=== PATIENT | female | born 1980 | race American Indian/Alaskan Native ===

== ENCOUNTER 2016-03-29 11:42 | Emergency (ER) | payer OTHER ==
[2016-03-29 13:00] LABS: Basophils % (Auto) 0.6 % (0.0-1.8); Eosinophils % (Auto) 3.1 % (0.0-4.3); Hematocrit 37.6 % (30.3-42.9); Hemoglobin 12.8 gm/dl (10.1-14.3); Mean Corpuscular HGB Conc 34 % (30-34); Mean Corpuscular Hemoglobin 30 pg (28-32); Mean Corpuscular Volume 89 fl (79-97); Platelet Count 269 K/mm3 (140-440); Red Blood Count 4.22 M/mm3 (3.65-5.03); Red Cell Distribution Width 12.9 % (13.2-15.2); White Blood Count 7.3 K/mm3 (4.5-11.0)
[2016-03-29 13:11] LABS: Anion Gap 14 mmol/L; BUN/Creatinine Ratio 14.28; Blood Urea Nitrogen 10 mg/dL (7-17); Calcium 9.1 mg/dL (8.4-10.2); Carbon Dioxide 27 mmol/L (22-30); Chloride 100.3 mmol/L (98-107); Glucose 141 mg/dL (65-100); Potassium 3.7 mmol/L (3.6-5.0); Sodium 138 mmol/L (137-145)
--- NOTE | 2016-03-29 16:55 | Emergency Department Report ---
HPI - General Chief Complaint: Chest Pain Time Seen by Provider: 03/29/16 16:14 - HPI HPI: The patient is a 35-year-old female who presents for evaluation of cough and chest pain. The patient reports cough and chest pain since this a.m., greater than 8 hours prior to my evaluation, chest pain tightness and aching in quality , mild in severity, exacerbated with coughing, and relieved at rest. She states her cough has been nonproductive. She denies fever, current shortness of breath, syncope, hemoptysis, palpitations, orthopnea, unilateral leg swelling , conscious septal use, history of DVT or PE, history of cancer. ED Past Medical Hx - Past Medical History Hx Hypertension: Yes Hx Asthma: Yes - Surgical History Hx Cholecystectomy: Yes Additional Surgical History: breast reduction, L. foot - Social History Smoking Status: Never Smoker Substance Use Type: None - Medications Home Medications: Home Medications Medication Instructions Recorded Confirmed Last Taken Type Hydrochlorothiazide [HCTZ] 25 mg PO ONCE #30 tablet 01/16/16 03/29/16 Unknown Rx ALBUTEROL Inhaler [ProAir HFA 2 puff IH QID PRN #1 inhalation 03/29/16 Unknown Rx Inhaler] ALBUTEROL Inhaler [Proair] 2 puff IH QID PRN 03/29/16 03/29/16 Unknown History Azithromycin [Zithromax Z-MARY] 250 mg PO QDAY #6 tablet 03/29/16 Unknown Rx Benzonatate [Tessalon Perles] 100 mg PO Q8HR #14 capsule 03/29/16 Unknown Rx Phenylephrine/Dm/Acetaminop/GG 20 ml PO Q4HR PRN #180 liquid 03/29/16 Unknown Rx [Mucinex Sfza-Mdc-Wropmkdhfn Lq] ED Review of Systems ROS: Stated complaint: CHEST PAIN/HIGH BP Other details as noted in HPI Constitutional: denies: fever ENT: denies: throat or neck pain Respiratory: reports cough denies: shortness of breath Cardiovascular: reports chest pain Endocrine: denies unexplained weight loss or gain Gastrointestinal: denies: abdominal pain, nausea Genitourinary: denies: dysuria Musculoskeletal: denies: leg swelling Skin: denies: rash Neurological: denies: headache Hematological/Lymphatic: denies: easy bleeding or easy bruising Psych: denies sadness or hopelessness Physical Exam - Physical Exam Vital Signs: Vital Signs 03/29/16 03/29/16 12:14 14:07 Temperature 98.1 F 97.9 F Pulse Rate 64 79 Respiratory 18 16 Rate Blood Pressure 182/111 Blood Pressure 131/87 [Left] O2 Sat by Pulse 98 99 Oximetry Physical Exam: General: well-nourished, well-developed, no acute distress, patient morbidly obese Head: Normocephalic, atraumatic Eyes: normal sclera ENT: Mucous membranes are pink and moist Neck: trachea midline, neck supple, No neck stiffness, no cervical adenopathy Respiratory: Breath sounds equal bilaterally, no wheezing, rales, or rhonchi Cardio: S1 and S2 present, no murmurs, rubs, gallops, capillary refill is brisk Abdomen: Normoactive bowel sounds, soft abdomen, no rigidity, no guarding or rebound tenderness Chest WALL/Back: tenderness to palpation of the left anterior chest wall present , no CVA tenderness with percussion Musc: No pitting edema Skin: No rash Neuro: no facial drooping, normal speech Psych: Normal affect ED Course Vital Signs 03/29/16 03/29/16 12:14 14:07 Temperature 98.1 F 97.9 F Pulse Rate 64 79 Respiratory 18 16 Rate Blood Pressure 182/111 Blood Pressure 131/87 [Left] O2 Sat by Pulse 98 99 Oximetry ED Medical Decision Making - Lab Data Result diagrams: 03/29/16 12:42 03/29/16 12:42 - Medical Decision Making The patient was seen and examined by myself. The patient is placed on a gum machine filler and continuous pulse ox. On initial evaluation, the patient was found to be in no distress. Evaluation orders were placed. EKG was negative for findings consistent with acute cardiac infarct. The patient declines medicine for her cough and pain. She requested prescriptions for outpatient treatment of her symptoms. Lab results were not concerning. Chest x-ray is negative for pulmonary vessel congestion, pleural effusion, focal consolidation, or other acute cardio pulmonary disease process. The patient was reevaluated and reported that their symptoms were improved. On reexamination the patient is found to have normal respiratory rate and O2 sat on pulse oximetry, with no costal retractions or diminishment of breath sounds on auscultation. The patient is stable for discharge with outpatient follow-up. The patient is given follow-up and return instructions. She is given prescriptions for a Z-Mary, albuterol inhaler, and Mucinex. The patient expressed understanding and agreed with the plan. The patient is discharged in stable condition. Critical care attestation.: If time is entered above; I have spent that time in minutes in the direct care of this critically ill patient, excluding procedure time. ED Disposition Clinical Impression: Acute chest pain, Asymptomatic hypertensive urgency, Bronchitis Disposition: DISCHARGED TO HOME OR SELFCARE Is pt being admited?: No Does the pt Need Aspirin: No Condition: Stable Instructions: Chest Pain (ED), Acute Bronchitis (ED), Chronic Hypertension (ED) Prescriptions: ALBUTEROL Inhaler [ProAir HFA Inhaler] 2 puff IH QID PRN #1 inhalation PRN Reason: Shortness Of Breath Azithromycin [Zithromax Z-MARY] 250 mg PO QDAY #6 tablet Benzonatate [Tessalon Perles] 100 mg PO Q8HR #14 capsule Phenylephrine/Dm/Acetaminop/GG [Mucinex Pbqk-Avb-Adnvvtuswd Lq] 20 ml PO Q4HR PRN #180 liquid PRN Reason: cough and sore throat Referrals: PRIMARY CARE, [Primary Care Provider] - 3-5 Days Forms: Work/School Release Form(ED) Time of Disposition: 16:32
[2016-03-29 17:20] VITALS: BP 129/82
--- NOTE | 2016-03-30 08:22 | XRay Report ---
AP CHEST: AP view of the chest demonstrates a normal mediastinal and cardiac contour with clear lungs and normal bony and soft tissue structures. IMPRESSION: Normal AP chest.
== END 2016-03-29 17:21 | disposition home or self-care (01) ==
LOC: ED 11:42
DX: R07.9 Chest pain, unspecified (principal); J40 Bronchitis, not specified as acute or chronic; I16.0 Hypertensive urgency; J45.909 Unspecified asthma, uncomplicated
CPT/HCPCS: 36415; 71010; 80048; 84484; 85025; 93005; 93010

== ENCOUNTER 2016-07-15 13:58 | Emergency (ER) | payer MEDICAID, OTHER ==
[2016-07-15 14:22] LABS: Hematocrit 38.7 % (30.3-42.9); Hemoglobin 13.2 gm/dl (10.1-14.3); Mean Corpuscular HGB Conc 34 % (30-34); Mean Corpuscular Hemoglobin 31 pg (28-32); Mean Corpuscular Volume 91 fl (79-97); Platelet Count 292 K/mm3 (140-440); Red Blood Count 4.27 M/mm3 (3.65-5.03); Red Cell Distribution Width 13.4 % (13.2-15.2); White Blood Count 7.8 K/mm3 (4.5-11.0)
[2016-07-15 14:43] LABS: Anion Gap 17 mmol/L; BUN/Creatinine Ratio 12.85; Blood Urea Nitrogen 9 mg/dL (7-17); Calcium 8.9 mg/dL (8.4-10.2); Carbon Dioxide 23 mmol/L (22-30); Chloride 97.5 mmol/L (98-107); Potassium 3.6 mmol/L (3.6-5.0); Sodium 134 mmol/L (137-145)
[2016-07-15 14:50] LABS: Bilirubin,Urine NEG (Negative); Blood,Urine LG (Negative); Ketones,Urine NEG (Negative); Leukocyte Esterase,Urine NEG (Negative); Nitrite,Urine NEG (Negative); RBC,Urine > 182.0 /HPF (0.0-6.0)
[2016-07-15 16:19] LABS: Glucose 98 mg/dL (65-100)
--- NOTE | 2016-07-15 16:58 | Emergency Department Report ---
ED HPI - General Chief complaint: Vaginal Bleeding Stated complaint: 8WKS W/BLEEDING Time Seen by Provider: 07/15/16 16:25 Source: patient Mode of arrival: Ambulatory Limitations: No Limitations - History of Present Illness Initial comments: 36-year-old female with a past medical history of asthma, hypertension, and previous cholecystectomy presents to the hospital complaints of miscarriage and vaginal bleeding. 4 days ago patient was told that her baby did not have a heartbeat. She estimates that is however, by LMP she is 10 weeks and 0 days. It was arranged for her to have a D&C the next day however, her insurance did not approve the procedure. Patient developed vaginal bleeding today and reports for heavy pads have been used since onset. She denies she reported a pelvic pain of 8/10 in intensity however, denies any pain currently. Mild lightheadedness reported without syncope. This is her third she has 2 living children with no previous history of miscarriages or abortions. [employer] [employer]: [facility] - Related Data Home Medications Medication Instructions Recorded Confirmed Last Taken ALBUTEROL Inhaler [Proair] 2 puff IH QID PRN 03/29/16 03/29/16 Unknown Previous Rx's Medication Instructions Recorded Last Taken Type Hydrochlorothiazide [HCTZ] 25 mg PO ONCE #30 tablet 01/16/16 Unknown Rx ALBUTEROL Inhaler [ProAir HFA 2 puff IH QID PRN #1 inhalation 03/29/16 Unknown Rx Inhaler] Azithromycin [Zithromax Z-MARY] 250 mg PO QDAY #6 tablet 03/29/16 Unknown Rx Benzonatate [Tessalon Perles] 100 mg PO Q8HR #14 capsule 03/29/16 Unknown Rx Phenylephrine/Dm/Acetaminop/GG 20 ml PO Q4HR PRN #180 liquid 03/29/16 Unknown Rx [Mucinex Hmew-Zth-Aylwxamtie Lq] HYDROcodone/APAP 5-325 [Morrill 1 each PO Q6HR PRN #15 tablet 07/15/16 Unknown Rx 5/325] Allergies Allergy/AdvReac Type Severity Reaction Status Date / Time No Known Allergies Allergy Verified 04/19/15 19:19 ED Review of Systems ROS: Stated complaint: 8WKS W/BLEEDING Other details as noted in HPI Comment: All other systems reviewed and negative Other: Constitutional: No fevers chills or weight loss Eyes: No eye pain visual changes or discharge ENT: No ear pain or throat pain Neck: Denies pain Respiratory: Denies cough wheezing shortness of breath Cardiovascular: Denies chest pain, palpitations, syncope GI: Denies abdominal pain, nausea, vomiting, diarrhea : Denies dysuria Musculoskeletal: Denies back pain Skin: Denies rash, lesions, erythema Neurologic: Denies headache, numbness, weakness Psychiatric: Denies suicidal ideation, hallucinations ED Past Medical Hx - Past Medical History Hx Hypertension: Yes Hx Asthma: Yes - Surgical History Hx Cholecystectomy: Yes Additional Surgical History: breast reduction, L. foot - Social History Smoking Status: Never Smoker Substance Use Type: None - Medications Home Medications: Home Medications Medication Instructions Recorded Confirmed Last Taken Type Hydrochlorothiazide [HCTZ] 25 mg PO ONCE #30 tablet 01/16/16 03/29/16 Unknown Rx ALBUTEROL Inhaler [ProAir HFA 2 puff IH QID PRN #1 inhalation 03/29/16 Unknown Rx Inhaler] ALBUTEROL Inhaler [Proair] 2 puff IH QID PRN 03/29/16 03/29/16 Unknown History Azithromycin [Zithromax Z-MARY] 250 mg PO QDAY #6 tablet 03/29/16 Unknown Rx Benzonatate [Tessalon Perles] 100 mg PO Q8HR #14 capsule 03/29/16 Unknown Rx Phenylephrine/Dm/Acetaminop/GG 20 ml PO Q4HR PRN #180 liquid 03/29/16 Unknown Rx [Mucinex Zrzl-Cic-Ktqoparzgx Lq] HYDROcodone/APAP 5-325 [[place]rill 1 each PO Q6HR PRN #15 tablet 07/15/16 Unknown Rx 5/325] ED Physical Exam - General Limitations: No Limitations - Other Other exam information: General: No limitations, patient is alert in no acute distress Head exam: Atraumatic, normocephalic Eyes exam: Normal appearance ENT: Moist mucous membrane, normal oropharynx Neck exam: Normal inspection, full range of motion Respiratory exam: Clear to auscultation bilateral, no wheezes, rales, crackles Cardiovascular: Normal rate and rhythm, normal heart sounds Abdomen: Soft, nondistended, and nontender, with normal bowel sounds, no rebound, or guarding Extremity: Full range of motion normal inspection no deformity Back: Normal Inspection, full range of motion, no tenderness Neurologic: Alert, oriented x3, cranial nerves intact, no motor or sensory deficit Psychiatric: normal affect, normal mood Skin: Warm, dry, intact ED Course Vital Signs 07/15/16 07/15/16 14:01 16:51 Temperature 98 F Pulse Rate 72 62 Respiratory 18 18 Rate Blood Pressure 131/97 Blood Pressure 139/80 [Right] O2 Sat by Pulse 100 98 Oximetry - Reevaluation(s) Reevaluation #1: 07/15/16 18:24 Patient stable with no significant pain in the ED - Consultations Consultation #1: 07/15/16 18:[address] Mcgee with [facility] [facility] [employer]. Recommend follow-up on Sunday ED Medical Decision Making - Lab Data Result diagrams: 07/15/16 14:09 07/15/16 14:09 Lab Results 07/15/16 07/15/16 07/15/16 Range/Units 14:09 14:09 14:09 WBC 7.8 (4.5-11.0) K/mm3 RBC 4.27 (3.65-5.03) M/mm3 Hgb 13.2 (10.1-14.3) gm/dl Hct 38.7 (30.3-42.9) % MCV 91 (79-97) fl MCH 31 (28-32) pg MCHC 34 (30-34) % RDW 13.4 (13.2-15.2) % Plt Count 292 (140-440) K/mm3 Sodium 134 L (137-145) mmol/L Potassium 3.6 (3.6-5.0) mmol/L Chloride 97.5 L (98-107) mmol/L Carbon Dioxide 23 (22-30) mmol/L Anion Gap 17 mmol/L BUN 9 (7-17) mg/dL Creatinine 0.7 (0.7-1.2) mg/dL Estimated GFR > 60 ml/min BUN/Creatinine Ratio 12.85 % Glucose 98 (65-100) mg/dL Calcium 8.9 (8.4-10.2) mg/dL HCG, Quant 338.3 H (0-4) mIU/mL Urine Color (Yellow) Urine Turbidity (Clear) Urine pH (5.0-7.0) Ur Specific [place] (1.003-1.030) Urine Protein (Negative) mg/dL Urine Glucose (UA) (Negative) mg/dL Urine Ketones (Negative) mg/dL Urine Blood (Negative) Urine Nitrite (Negative) Urine Bilirubin (Negative) Urine Urobilinogen (<2.0) mg/dL Ur Leukocyte Esterase (Negative) Urine WBC (Auto) (0.0-6.0) /HPF Urine RBC (Auto) (0.0-6.0) /HPF U Epithel Cells (Auto) (0-13.0) /HPF Blood Type 07/15/16 07/15/16 Range/Units 14:28 14:50 WBC (4.5-11.0) K/mm3 RBC (3.65-5.03) M/mm3 Hgb (10.1-14.3) gm/dl Hct (30.3-42.9) % MCV (79-97) fl MCH (28-32) pg MCHC (30-34) % RDW (13.2-15.2) % Plt Count (140-440) K/mm3 Sodium (137-145) mmol/L Potassium (3.6-5.0) mmol/L Chloride (98-107) mmol/L Carbon Dioxide (22-30) mmol/L Anion Gap mmol/L BUN (7-17) mg/dL Creatinine (0.7-1.2) mg/dL Estimated GFR ml/min BUN/Creatinine Ratio % Glucose (65-100) mg/dL Calcium (8.4-10.2) mg/dL HCG, Quant (0-4) mIU/mL Urine Color Yellow (Yellow) Urine Turbidity Slightly-cloudy (Clear) Urine pH 6.0 (5.0-7.0) Ur Specific [place] 1.016 (1.003-1.030) Urine Protein 30 mg/dl (Negative) mg/dL Urine Glucose (UA) Neg (Negative) mg/dL Urine Ketones Neg (Negative) mg/dL Urine Blood Lg (Negative) Urine Nitrite Neg (Negative) Urine Bilirubin Neg (Negative) Urine Urobilinogen 2.0 (<2.0) mg/dL Ur Leukocyte Esterase Neg (Negative) Urine WBC (Auto) 2.0 (0.0-6.0) /HPF Urine RBC (Auto) > 182.0 (0.0-6.0) /HPF U Epithel Cells (Auto) 4.0 (0-13.0) /HPF Blood Type O POSITIVE - Radiology Data Radiology results: report reviewed (transvaginal/pelvic: THICKEND ENDOMETRIUM 17.6 MM NO IUP) - Medical Decision Making Patient has no findings IUP at this time. D&C is not indicated. Case discussed with [employer]. Recommend follow-up in office on Sunday. Patient is O+ and does not require RhoGAM. She has a beta hCG 300s at this time - Differential Diagnosis complete miscarriage, missed , INcomplete miscarriage Critical Care Time: No Critical care attestation.: If time is entered above; I have spent that time in minutes in the direct care of this critically ill patient, excluding procedure time. ED Disposition Clinical Impression: Miscarriage Disposition: DISCHARGED TO HOME OR SELFCARE Is pt being admited?: No Does the pt Need Aspirin: No Condition: Stable Instructions: Spontaneous Miscarriage (ED) Additional Instructions: Take medication as prescribed. Return if symptoms worsen. Follow-up with your [employer] doctor on July 18 Prescriptions: HYDROcodone/APAP 5-325 [Morrill 5/325] 1 each PO Q6HR PRN #15 tablet PRN Reason: Pain Referrals: PRIEMER KIN BOWMAN [Other] - 07/18/16 Time of Disposition: 18:27
--- NOTE | 2016-07-15 17:39 | Ultrasound Report ---
FINAL REPORT EXAM: US OB \T\lt; = 14 WEEKS FETUS HISTORY: vag bleed with TECHNIQUE: Ultrasound evaluation of the pelvis using TRANSABDOMINAL technique PRIORS: Endovaginal pelvic ultrasound 07/15/2016 and 04/20/2015 FINDINGS: Uterus size and shape are normal, 10.2 x 5.8 x 6.7 cm. No evidence of uterine mass. The endometrium is homogenous. Endometrial thickness is 17.6mm. Color Doppler imaging demonstrates endometrial vascularity but no evidence of gestational sac or pole. There is no cul-de-sac free fluid. Normal ovarian size. No evidence of solid ovarian mass. The adnexa are normal. Right ovary: 2.9 x 2.0 x 2.7 cm Left ovary: 3.3 x 1.9 x 2.2 cm IMPRESSION: Thickened endometrium with vascularity noted on color Doppler imaging. No ultrasound evidence of gestational sac or pole
--- NOTE | 2016-07-15 17:43 | Ultrasound Report ---
FINAL REPORT EXAM: US OB TRANSVAGINAL HISTORY: vag bleed with TECHNIQUE: Ultrasound evaluation of the pelvis using TRANSVAGINAL technique PRIORS: Transabdominal pelvic ultrasound 07/15/2016 FINDINGS: Uterus size and shape are normal, 10.2 x 5.8 x 6.7 cm. No evidence of uterine mass. The endometrium is homogenous. Endometrial thickness is 17.6mm. Color Doppler imaging demonstrates endometrial vascularity but no evidence of gestational sac or pole. There is no cul-de-sac free fluid. Normal ovarian size. No evidence of solid ovarian mass. Ovarian/adnexal blood flow is present. The adnexa are normal. Right ovary: 2.9 x 2.0 x 2.7 cm Left ovary: 3.3 x 1.9 x 2.2 cm IMPRESSION: Thickened endometrium with vascularity noted on color Doppler imaging. No ultrasound evidence of gestational sac or pole
[2016-07-15 18:39] VITALS: BP 145/82
== END 2016-07-15 18:38 | disposition home or self-care (01) ==
LOC: ED 13:58
DX: O03.9 Complete or unspecified spontaneous abortion without complication (principal); J45.909 Unspecified asthma, uncomplicated; I10 Essential (primary) hypertension
CPT/HCPCS: 36415; 76801; 76817; 80048; 81001; 84702; 85027; 86900; 86901